=== PATIENT | male | born 1955 | race Caucasian/White ===

== ENCOUNTER → 2017-01-11 | Outpatient (CLI) | payer BC ==
--- NOTE | 2017-01-11 14:14 | KCIC ---
INDICATION: Right renal stone, with intervention and stent placement. TECHNIQUE: KUB contains 2 images. No comparison is available. FINDINGS: Right ureteral stent is noted and appears in position. No definite calculus along the course of the stent is apparent. No definite calculus projecting over the right renal shadow is apparent. No calculus projecting over the left renal shadow is apparent. Mild to moderate amount of stool is noted in the colon. There is no dilated small bowel loop or evidence of bowel obstruction. There are calcified phleboliths in the pelvis. IMPRESSION: Right ureteral stent appears in place. No calculus along the course of the stent. Electronically signed by: Ruslan Bahena MD (01/11/2017 2:11 PM) [facility]
== END | disposition home or self-care (01) ==
LOC: KCIC 12:45
PROVIDERS: ATTEND Family Medicine
DX: N20.0 Calculus of kidney (principal)
CPT/HCPCS: 74000

== ENCOUNTER → 2018-07-11 | Outpatient (CLI) | payer BC ==
--- NOTE | 2018-07-11 12:50 | KCIC ---
EXAM: Abdomen, single view. HISTORY: Nephrolithiasis. COMPARISON: 01/11/2017 FINDINGS: Frontal views of the abdomen and pelvis are obtained. There has been removal of a right nephroureteral stent. There is no convincing renal or ureteral stone. Evaluation is limited due to overlying bowel. There are several pelvic phleboliths. There is no evidence of bowel obstruction. There is bilateral hip osteoarthritis. There is degenerative change at the lumbosacral junction. IMPRESSION: 1. No convincing nephroureterolithiasis. 2. Moderate colonic stool. No evidence of bowel obstruction. Electronically signed by: Carlita Heck MD (07/11/2018 12:45 PM) [id number]
== END | disposition home or self-care (01) ==
LOC: KCIC 11:55
PROVIDERS: ATTEND Urology
DX: M16.0 Bilateral primary osteoarthritis of hip (principal); I87.8 Other specified disorders of veins; Z87.442 Personal history of urinary calculi
CPT/HCPCS: 74018

== ENCOUNTER → 2019-02-13 | Outpatient (CLI) | payer BC ==
--- NOTE | 2019-02-13 19:29 | RAD ---
Examination: Right Lower Extremity Venous Doppler Ultrasound History: Right calf pain Comparison: None Procedure: Agustin scale, color flow 2D and spectal waveform analysis images are obtained with and without compression in the area of the common femoral vein, superficial femoral vein - femoral vein junction, main femoral vein (superficial femoral vein) and popliteal vein. Veins of the proximal calf are also imaged. Findings: There is normal duplex flow, color flow and compressibility of all visualized vein segments. No evidence of deep venous thrombus is present. There is a echogenicity identified in the lesser saphenous vein. Impression: 1. No evidence of DVT. 2. Occlusive thrombosis identified in the lesser saphenous vein. Electronically signed by: García Moe MD (02/13/2019 4:49 PM) [place] [id number]
== END | disposition home or self-care (01) ==
LOC: US 11:58
PROVIDERS: ATTEND Family Medicine
DX: I82.811 Embolism and thrombosis of superficial veins of right lower extremity (principal)
CPT/HCPCS: 93971

== ENCOUNTER → 2019-02-13 | Outpatient (CLI) | payer BC ==
--- NOTE | 2019-02-13 19:29 | KCIC ---
EXAM: AP, oblique and lateral views of the left elbow DATE: 02/13/2019 12:00 AM INDICATION: LEFT SHOULDER AND ELBOW PAIN COMPARISON: No Prior FINDINGS/ IMPRESSION: No evidence of acute fracture or dislocation. No left elbow joint effusion. Electronically signed by: Memo Temple MD (02/13/2019 4:38 PM) [facility]
--- NOTE | 2019-02-13 19:30 | KCIC ---
EXAM: 3 views left shoulder DATE: 02/13/2019 12:00 AM INDICATION: Left shoulder and elbow pain COMPARISON: No Prior FINDINGS/ IMPRESSION: No evidence of acute fracture or dislocation. AC joint degenerative changes are seen. Sclerotic focus within the left glenoid likely bone island. Electronically signed by: Memo Temple MD (02/13/2019 5:20 PM) [facility]
== END | disposition home or self-care (01) ==
LOC: KCIC 12:25
PROVIDERS: ATTEND Family Medicine
DX: M19.012 Primary osteoarthritis, left shoulder (principal); M25.522 Pain in left elbow
CPT/HCPCS: 73030; 73080

== ENCOUNTER → 2019-03-27 | Outpatient (CLI) | payer BC ==
--- NOTE | 2019-03-27 15:00 | KCIC ---
Right lower extremity venous duplex study 03/27/2019 2:55 PM Clinical History: Follow-up, superficial venous thrombosis Technique: Using a combination of real time ultrasound imaging and color-flow and pulse Doppler imaging techniques, including spectral analysis, graded compression and augmentation, duplex evaluation of the deep venous system of the right lower extremity was performed. Multiple images were obtained. Findings: There is no sonographic evidence of deep venous thrombosis involving the visualized deep venous structures of the right lower extremity. Lesser saphenous vein thrombus is partially resolved in the interim. There is however persistent occlusive thrombus, particularly distally. Impression: 1.No evidence of deep venous thrombosis involving the right lower extremity 2. Interval improvement in but persistent clot within the lesser saphenous vein Electronically signed by: Sonny Live MD (03/27/2019 2:57 PM) [id number]
== END | disposition home or self-care (01) ==
LOC: KCIC US 12:59
PROVIDERS: ATTEND Family Medicine
DX: I82.811 Embolism and thrombosis of superficial veins of right lower extremity (principal)
CPT/HCPCS: 93971

== ENCOUNTER → 2019-05-19 | Outpatient (CLI) | payer BC ==
[~2019-05-19] MED LIST: OXYMETAZOLINE 0.05% NASAL SPRAY 30ML BOTTLE. NS ONE
--- NOTE | 2019-05-20 15:54 | SLEEP ---
DATE OF STUDY: 05/19/2019 SLEEP STUDY ATTENDING PHYSICIAN: Dr. Timothy Anderson. The patient is 63 years old who weighs 206 pounds with a BMI of 29. The patient's Gloster score was 4. The patient underwent split night study performed at [facility]. During the night study, the patient spent 454 minutes in bed and slept for 315 minutes with a low sleep efficiency of 69%. Sleep latency was 9 minutes with a REM latency of 60 minutes. Sleep architecture showed increased stage 1 and stage 2 sleep, normal slow wave and normal REM sleep. During the initial diagnostic portion of the study, the patient slept for 172 minutes. The patient had 12 obstructive apneas, 37 mixed apneas, 1 central apnea and 72 hypopneas. The patient's apnea hypopnea index was 43 per hour with a supine index of 85 per hour and a REM index of 68 per hour. EKG monitoring revealed normal sinus rhythm, average heart rate 79 beats per minute, no sustained arrhythmias observed. Nocturnal oximetry study revealed a mean oxygen saturation of 94% with lowest of 81%. A 4.8% of time oxygen saturation remained between 80% and 89%. PLMS were seen at index of 11 per hour and 3 per hour caused EEG arousals. The patient met the criteria for CPAP initiation. It was started at 7 cm water and titrated up to 12 cm water. At the final pressure, the patient slept for 55 minutes. The patient had supine as well as REM sleep. The patient's AHI was reduced to 0 per hour and oxygen saturation remained above 94%. The patient used medium size full face mask. IMPRESSION: 1. Severe sleep apnea-hypopnea syndrome at an AHI of 43 per hour. 2. Nocturnal hypoxia secondary to obstructive sleep apnea, but resolved with CPAP. 3. Mild PLMS which does not need to be treated. RECOMMENDATIONS: 1. CPAP at 12 cm water completely eliminated the patient's sleep apnea and should be used on a nightly basis. 2. Follow up in 4-6 weeks to assess compliance with CPAP and to document clinical improvement. 3. Weight loss is strongly advised. 4. Avoid [employer] depressants. 5. Caution regarding driving until symptoms of sleep apnea resolve with the use of CPAP. CELINA KAMARA MD DR: VANESSA/annelise JOB#: [id number] / [id number] TIMOTHY Browne MD
== END | disposition home or self-care (01) ==
LOC: RT 19:08
PROVIDERS: ATTEND Family Medicine
DX: G47.33 Obstructive sleep apnea (adult) (pediatric) (principal); G47.34 Idiopathic sleep related nonobstructive alveolar hypoventilation
CPT/HCPCS: 95810

== ENCOUNTER → 2019-07-13 | Outpatient (CLI) | payer BC ==
[~2019-07-13] MED LIST changes: +0.9 % SODIUM CHLORIDE 10 ML DISP.SYRIN. ID ONE; +AMLO2.5T5 PO; +GADOTERATE 5 MMOL/10ML VIAL. INT ART ONE; +IOHEXOL 300 MG/ML 50 ML VIAL. INT ART ONE; +LIDOCAINE 1% Multi-Dose 20 ML VIAL. ID ONE; +LOSA-73 PO; -OXYMETAZOLINE 0.05% NASAL SPRAY 30ML BOTTLE. NS ONE
--- NOTE | 2019-07-13 16:52 | KCIC ---
MR of the left shoulder HISTORY: Left shoulder tendinitis. Pain with certain movements for one or 2 years. TECHNIQUE: Routine multiplanar sequences are obtained. FINDINGS: Mild to moderate motion degradation. The acromioclavicular joint is mildly degenerative. Mild motion degradation. Rotator cuff tendinosis. Small partial-thickness articular surface tear at the supraspinatus footplate, coronal series 8, image 8, about 50% across and less than 1 cm diameter. No large or full-thickness tear. Mild contrast in the subdeltoid bursa may have been introduced during injection procedure. Subscapularis tendon demonstrates no evidence of tear. Limited labrum examination due to the motion. There appears to be a superior labral tear. No evidence of acute articular cartilage defect or advanced DJD. Biceps tendon is intact. No acute fracture. No aggressive bone destruction. IMPRESSION: 1. Superior labral tear. 2. Rotator cuff tendinosis. Very small subcentimeter partial-thickness tear at the articular footplate of the supraspinatus tendon. Electronically signed by: Jose Enrique Montemayor MD (07/13/2019 4:49 PM) [facility]
--- NOTE | 2019-07-13 17:26 | KCIC ---
PROCEDURE: Left shoulder injection using fluoroscopic guidance, prior to MR. HISTORY: Shoulder pain. TECHNIQUE: The procedure was explained to the patient as were potential risks, including among others infection, bleeding or allergic reaction. All questions were answered. Informed written and verbal consent was obtained. The shoulder was prepped and draped in the usual sterile manner. Following administration of local anesthetic, a 22-gauge needle was advanced into the anterior shoulder. Following negative aspiration, 12 cc of a solution of 5cc Omnipaque-300 contrast, 5 cc 1% lidocaine, 10 cc normal saline, and 0.1 cc gadolinium was injected without difficulty. The needle was removed. There was good hemostasis at the injection site. The patient left in stable condition without immediate complication. Patient was advised as to possible although unlikely postprocedural complications, with instructions to contact their physician or the emergency room in such event. A single spot image is obtained. FLUOROSCOPY TIME:?20 seconds Electronically signed by: Jose Enrique Montemayor MD (07/13/2019 5:23 PM) [id number]
== END | disposition home or self-care (01) ==
LOC: KCIC 12:56
PROVIDERS: ATTEND Orthopaedic Surgery
DX: S43.432A Superior glenoid labrum lesion of left shoulder, initial encounter (principal); M75.102 Unspecified rotator cuff tear or rupture of left shoulder, not specified as traumatic; M75.82 Other shoulder lesions, left shoulder; X58.XXXA Exposure to other specified factors, initial encounter; Y93.89 Activity, other specified; Y92.89 Other specified places as the place of occurrence of the external cause; Y99.8 Other external cause status
CPT/HCPCS: 73040; 73222; A9575; Q9967